=== PATIENT | female | born 1970 | race Caucasian/White ===

== ENCOUNTER 2020-03-03 15:33 | Emergency (ER) | payer SELFPAY ==
[~2020-03-03] VITALS: Ht 154.9 cm; Wt 55.5 kg
--- NOTE | 2020-03-03 15:45 | NUR ---
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 PT TAKEN TO ROOM AT THIS TIME.
[2020-03-03 16:32] VITALS: BP 130/82
--- NOTE | 2020-03-03 16:33 | NUR ---
PT BACK FROM IMAGING, VSS, NAD NOTED
== END 2020-03-03 17:25 | disposition home or self-care (01) ==
LOC: ED 16:29
DX: S29.012A Strain of muscle and tendon of back wall of thorax, initial encounter (principal); M54.2 Cervicalgia; V43.52XA Car driver injured in collision with other type car in traffic accident, initial encounter; Y93.89 Activity, other specified; Y92.89 Other specified places as the place of occurrence of the external cause; Y99.8 Other external cause status
CPT/HCPCS: 72050; 72072; 99284

== ENCOUNTER 2021-02-26 10:44 | Emergency (ER) | payer OTHER ==
[~2021-02-26] VITALS: Ht 154.9 cm; Wt 55.0 kg
[2021-02-26 10:46] VITALS: BP 160/102
--- NOTE | 2021-02-26 10:56 | NUR ---
PT BIB EMS, LAST NIGHT PT WAS CLEANING NOSE WITH TOOTHPICK AND A PART BROKE OFF AND SHE FEELS THAT IT IS STUCK IN HER TONGUE.
[2021-02-26] MEDS ORDERED: BENZOCAINE 20% SPRAY 0.5ML ONE (12:23)
--- NOTE | 2021-02-26 12:32 | NUR ---
PT ASSESSED BY MD BEDSIDE, PER MD INSTRUCTION, PROVIDED PT WITH CRACKERS AND WATER. PT SITTING ON GURNEY.
--- NOTE | 2021-02-26 12:44 | NUR ---
PT TOLERATED CRACKERS AND WATER WELL. PT FAMILY MEMBER ARRIVES TO BEDSIDE
== END 2021-02-26 13:10 | disposition home or self-care (01) ==
LOC: ED 10:53
DX: T18.9XXA Foreign body of alimentary tract, part unspecified, initial encounter (principal); X58.XXXA Exposure to other specified factors, initial encounter; Y93.89 Activity, other specified; Y92.89 Other specified places as the place of occurrence of the external cause; Y99.8 Other external cause status
CPT/HCPCS: 99283